=== PATIENT | female | born 1940 | race Caucasian/White ===

== ENCOUNTER → 2017-02-07 | Outpatient (CLI) | payer MEDICARE, BC ==
[~2017-02-07] MED LIST: ASPIRIN 81M81 MG/TA2 PO; CEFPODOXIME PR100 MG PO; CITRACAL PLUS1 TAB PO; GELNIQUE100 MG/GM TOP; LEVAQUIN 750MG750 M1 PO; MOTRIN 200200 MG/TAB PO; MULTIPLE VITAMI1 CAP PO; RITE AID KRILL500 MG PO; TENORMIN 2525 MG/TAB PO; TYLENOL 325MG325 MG PO; ZOCOR 20MG20 MG PO
== END ==
LOC: MC.RAD 09:40
DX: Z12.31 Encounter for screening mammogram for malignant neoplasm of breast (principal); Z80.3 Family history of malignant neoplasm of breast

== ENCOUNTER → 2017-11-23 | Outpatient (CLI) | payer MEDICARE, BC ==
[2017-11-23 16:11] LABS: BASO # 0.1 (0.0-0.2); EOS # 0.2 (0.0-0.7); EOS % 2.8 % (0-4.0); GRAN # 3.4 (1.4-6.5); HEMATOCRIT 40.5 % (37.0-47.0); HEMOGLOBIN 13.6 g/dl (12.5-16.0); LYMPH # 1.5 (1.2-3.4); LYMPH % 26.9 % (20.0-51.0); MEAN CELL VOLUME 96 fl (80.0-100.0); MEAN CORPUSCULAR HEMOGLOBIN 32 pg (27.0-31.0); MEAN CORPUSCULAR HGB CONC 34 g/dl (33.0-37.0); MEAN PLATELET VOLUME 8.7 fl (7.4-10.4); MONO # 0.6 (0.1-0.6); MONO % 10.1 % (1.7-9.3); PLATELET COUNT 289 K/mm3 (130-400); REDCELL DISTRIBUTION WIDTH-CV 12.7 % (11.5-14.5)
[2017-11-23 16:18] LABS: ANION GAP 8 mmol/L (7-16); BLOOD UREA NITROGEN 15 mg/dL (7-17); CALCIUM 9.6 mg/dL (8.4-10.2); CARBON DIOXIDE 26 mmol/L (22-30); CHLORIDE 108 mmol/L (98-107); CREATININE, serum 0.77 mg/dL (0.52-1.25); GLUCOSE 96 mg/dL (74-106); POTASSIUM 4.1 mmol/L (3.4-5.0); SODIUM 142 mmol/L (137-145)
[2017-11-23 16:35] LABS: TROPONIN-I < 0.012 ng/mL (0.000-0.034)
== END ==
LOC: COL.LAB 15:43
PROVIDERS: Internal Medicine
DX: R07.9 Chest pain, unspecified (principal)

== ENCOUNTER 2019-02-19 15:37 | Outpatient (CLI) | payer MEDICARE, BC ==
[~2019-02-19] VITALS: Ht 160 cm; Wt 59.1 kg
[2019-02-19 15:53] VITALS: BP 153/74; PULSE 60; TEMP 97.9
== END 2019-02-19 17:00 | disposition home or self-care (01) ==
LOC: EUO 15:37
DX: M81.0 Age-related osteoporosis without current pathological fracture (principal)
CPT/HCPCS: J3489

== ENCOUNTER 2020-04-30 07:30 | Outpatient (RCR) | payer MEDICARE, BC ==
[2020-04-28 15:00] VITALS: BP 129/75; PULSE 62; TEMP 98.4
[~2020-04-30] VITALS: Ht 160 cm; Wt 51.6 kg
[~2020-04-30 07:30] MED LIST changes: +CEPHALEXIN500 M1 PO; +MASON NATURAL1200 MG PO; -MOTRIN 200200 MG/TAB PO; +MOTRIN 600600 MG/TAB PO; +PRINIVIL5 MG PO; +VITAMIN D31000 I1 PO
[2020-04-30 07:57] VITALS: BP 137/85; PULSE 57; TEMP 98.6
== END 2020-04-30 08:41 | disposition home or self-care (01) ==
LOC: EUO 07:30
DX: M85.89 Other specified disorders of bone density and structure, multiple sites (principal)
CPT/HCPCS: J3489

== ENCOUNTER 2021-05-03 14:03 | Outpatient (CLI) | payer MEDICARE, BC ==
[~2021-05-03] VITALS: Ht 160 cm; Wt 52.6 kg
[2021-05-03 15:15] VITALS: BP 102/58; PULSE 62; TEMP 98.1
== END 2021-05-03 15:15 | disposition home or self-care (01) ==
LOC: EUO 14:03
DX: M81.0 Age-related osteoporosis without current pathological fracture (principal); M85.89 Other specified disorders of bone density and structure, multiple sites
CPT/HCPCS: J3489

== ENCOUNTER 2022-05-19 14:00 | Outpatient (CLI) | payer MEDICARE, BC ==
[~2022-05-19] VITALS: Ht 160 cm; Wt 52.0 kg
[2022-05-19 14:26] VITALS: BP 134/80; PULSE 60; TEMP 98.4
== END 2022-05-19 15:09 ==
LOC: EUO 14:00
DX: M81.0 Age-related osteoporosis without current pathological fracture (principal)
CPT/HCPCS: J3489

== ENCOUNTER 2023-11-09 11:37 | Emergency (ER) | payer MEDICARE, BC ==
[~2023-11-09] VITALS: Ht 160 cm; Wt 48.2 kg
[~2023-11-09 11:37] MED LIST changes: -CITRACAL PLUS1 TAB PO; +RECLAST5 MG/100 M IV; +VITAMIN D362.5 MC1 PO; +ZYRTEC 10MG10 MG PO
[2023-11-09 12:00] VITALS: TEMP 97.7
[2023-11-09 12:37] LABS: BASO # 0.1 K/mm3 (0.0-0.2); BASO % 1.3 % (0.0-2.0); EOS # 0.2 K/mm3 (0.0-0.7); GRAN # 3.8 K/mm3 (1.4-6.5); GRAN % 60.3 % (42.2-75.2); HEMATOCRIT 41.3 % (37.0-47.0); HEMOGLOBIN 14.5 g/dl (12.5-16.0); LYMPH # 1.4 K/mm3 (1.2-3.4); LYMPH % 22.9 % (20.0-51.0); MEAN CELL VOLUME 93 fl (80.0-100.0); MEAN CORPUSCULAR HEMOGLOBIN 33 pg (27-31); MEAN CORPUSCULAR HGB CONC 35 g/dl (33.0-37.0); MEAN PLATELET VOLUME 8.8 fl (7.4-10.4); MONO # 0.8 K/mm3 (0.1-0.6); MONO % 12.3 % (1.7-9.3); PLATELET COUNT 306 K/mm3 (130-400); RED BLOOD COUNT 4.45 M/mm3 (4.10-5.30); REDCELL DISTRIBUTION WIDTH-CV 13.4 % (11.5-14.5)
[2023-11-09 12:44] LABS: ALANINE AMINOTRANSFERASE 12 U/L (0-55); ALKALINE PHOSPHATASE 66 U/L (40-150); ANION GAP 10 mmol/L (7-16); AST,SGOT 23 U/L (5-34); BILIRUBIN,TOTAL 0.9 mg/dL (0.2-1.2); BLOOD UREA NITROGEN 10 mg/dL (10-20); CALCIUM 9.8 mg/dL (8.4-10.2); CARBON DIOXIDE 21 mmol/L (23-31); CHLORIDE 112 mmol/L (98-107); CREATININE, serum 0.73 mg/dL (0.57-1.11); GLUCOSE 96 mg/dL (70-99); POTASSIUM 4.5 mmol/L (3.5-4.5); SODIUM 143 mmol/L (136-145); TOTAL PROTEIN 6.9 gm/dL (6.2-8.1)
[2023-11-09 12:50] LABS: TROPONIN-I < 0.010 ng/mL (0.00-0.033)
[2023-11-09 13:44] VITALS: BP 157/79; PULSE 60
== END 2023-11-09 14:00 | disposition home or self-care (01) ==
LOC: COL.ER 11:37
PROVIDERS: Physician Assistant
DX: R07.89 Other chest pain (principal); M25.512 Pain in left shoulder; I10 Essential (primary) hypertension; Z79.899 Other long term (current) drug therapy
CPT/HCPCS: J2405

== ENCOUNTER → 2024-05-09 | Outpatient (CLI) | payer MEDICARE, BC ==
[~2024-05-09] MED LIST changes: +Albuterol 0.083% Neb Soln 2.5 MG/3 ML UD IH ONE
== END ==
LOC: CANSCHCLI → COL.CARD 08-13 10:00 → COL.PUL 08-13 10:00 → COL.CARD 09:07
DX: R06.09 Other forms of dyspnea (principal)